=== PATIENT | female | born 1960 | race Caucasian/White ===

== ENCOUNTER 2018-06-01 06:21 | Observation (INO) | payer OTHER ==
[~2018-06-01] VITALS: Ht 162.6 cm; Wt 105.8 kg
[2018-06-01] MEDS ORDERED: ONDANSETRON ODT 4 MG PO ONE (07:30)
[2018-06-01] MEDS ORDERED: ASPIRIN 81 MG TABLET CHEW PO ONE (07:30)
[2018-06-01 07:44] LABS: BASOPHILS # (AUTO) 0.13 x10^3/uL (0-0.1); BASOPHILS % (AUTO) 2 % (0-1); EOSINOPHILS % (AUTO) 4 % (1-7); LYMPHOCYTES # (AUTO) 2.52 x10^3/uL (1-3.4); LYMPHOCYTES % (AUTO) 29 % (22-44); MD NO; MEAN CORPUSCULAR HEMOGLOBIN 30.2 pg (27.0-34.8); MEAN CORPUSCULAR HGB CONC 33.9 g/dL (32.4-35.8); MONOCYTES # (AUTO) 0.52 x10^3/uL (0.2-0.8); MONOCYTES % (AUTO) 6 % (2-9); NEUTROPHILS # (AUTO) 5.12 x10^3/uL (1.8-6.8); NEUTROPHILS % (AUTO) 60 % (42-75); PLATELET COUNT 310 x10^3/uL (130-400); RED BLOOD COUNT 4.87 x10^6/uL (3.82-5.3); RED CELL DISTRIBUTION WIDTH 13.8 % (9.6-15.2)
[2018-06-01] MEDS ORDERED: ONDANSETRON ODT 4 MG ONE (07:50)
[2018-06-01] MEDS ORDERED: ASPIRIN 81 MG TABLET CHEW ONE (07:50)
[2018-06-01 07:54] LABS: ALBUMIN 3.7 g/dL (3.4-5.0); ANION GAP 7 mmol/L (5-15); CALCIUM 9.6 mg/dL (8.5-10.1); CHLORIDE 109 mmol/L (98-107)
[2018-06-01 07:55] LABS: ALANINE AMINOTRANSFERASE 20 U/L (12-78); CREATININE 0.84 mg/dL (0.55-1.02)
[2018-06-01 07:59] LABS: ALKALINE PHOSPHATASE 87 U/L (45-117); BILIRUBIN,TOTAL 0.3 mg/dL (0.2-1.0); TOTAL PROTEIN 7.5 g/dL (6.4-8.2); TROPONIN I < 0.015 ng/mL (0.000-0.045)
[2018-06-01] MEDS ORDERED: LORazepam 1MG TABLET ONE (08:37)
[2018-06-01] MEDS ORDERED: LORazepam 1MG TABLET PO ONE (09:00)
[2018-06-01 10:10] VITALS: BP 145/85
[2018-06-01] MEDS: KETOROLAC 30 MG/1 ML IV PRN ×2 (11:22→18:34)
[2018-06-01] MEDS: ENOXAPARIN 30 MG/0.3 ML SQ SCH ×2 (11:23→22:59)
[2018-06-01 12:32] LABS: CULTURE INDICATED? NO; MICROSCOPIC NOT IND
[2018-06-01 14:07] LABS: TROPONIN I < 0.015 ng/mL (0.000-0.045)
[2018-06-01 15:19] VITALS: BP 131/83
[2018-06-01] MEDS ORDERED: LORazepam 0.5MG TABLET PO PRN (17:30)
[2018-06-01 19:40] VITALS: BP 101/67
[2018-06-01 21:07] LABS: TROPONIN I < 0.015 ng/mL (0.000-0.045)
[2018-06-02 04:10] VITALS: BP 107/72
[2018-06-02 05:24] LABS: BASOPHILS # (AUTO) 0.07 x10^3/uL (0-0.1); BASOPHILS % (AUTO) 1 % (0-1); EOSINOPHILS # (AUTO) 0.46 x10^3/uL (0-0.4); EOSINOPHILS % (AUTO) 6 % (1-7); LYMPHOCYTES # (AUTO) 3.65 x10^3/uL (1-3.4); LYMPHOCYTES % (AUTO) 45 % (22-44); MD NO; MEAN CORPUSCULAR HEMOGLOBIN 30.9 pg (27.0-34.8); MEAN CORPUSCULAR VOLUME 91.1 fL (80-100); MEAN PLATELET VOLUME 8.1 fL (7.4-10.4); MONOCYTES % (AUTO) 7 % (2-9); NEUTROPHILS # (AUTO) 3.37 x10^3/uL (1.8-6.8); NEUTROPHILS % (AUTO) 41 % (42-75); PLATELET COUNT 275 x10^3/uL (130-400); RED BLOOD COUNT 4.52 x10^6/uL (3.82-5.3); RED CELL DISTRIBUTION WIDTH 13.5 % (9.6-15.2)
[2018-06-02 05:32] LABS: ANION GAP 6 mmol/L (5-15); CALCIUM 9.2 mg/dL (8.5-10.1); CHLORIDE 108 mmol/L (98-107); CREATININE 0.78 mg/dL (0.55-1.02)
[2018-06-02 08:10] VITALS: BP 117/77
[2018-06-02] MEDS ORDERED: REGADENOSON 0.4 MG/5 ML SYRINGE ONE (08:43)
[2018-06-02 12:36] VITALS: BP 147/86
== END 2018-06-02 16:03 | disposition home or self-care (01) ==
LOC: ED 07:07 → EDIP 09:12 → INTOOBSV 09:12 → 5SO 10:10 → DCLOUNGE 06-02 15:54
PROVIDERS: ADMIT Hospitalist; ATTEND Hospitalist
DX: R07.89 Other chest pain (principal); R42 Dizziness and giddiness; R11.0 Nausea; R10.9 Unspecified abdominal pain; R10.12 Left upper quadrant pain; E66.9 Obesity, unspecified; F41.9 Anxiety disorder, unspecified; Z79.82 Long term (current) use of aspirin; Z90.710 Acquired absence of both cervix and uterus
CPT/HCPCS: 36415; 71045; 78452; 80048; 80053; 81003; 83735; 84100; 84443; 84484; 85025; 93005; 93017; 96372; 96374; 96375; 99285; A9502; C9898; G0378; J1650; J1885; J2785; Q0162

== ENCOUNTER 2018-12-10 06:44 | Outpatient (CLI) | payer BC | END 2018-12-10 23:59 | disposition home or self-care (01) | LOC: CFH 06:44 | PROVIDERS: ATTEND Nurse Practitioner Family | DX: Z12.31 Encounter for screening mammogram for malignant neoplasm of breast (principal) | CPT/HCPCS: 77063; 77067 ==